=== PATIENT | female | born 1965 | race Caucasian/White ===

== ENCOUNTER → 2024-06-01 | Day surgery (SDC) | payer OTHER ==
[~2024-06-01] MED LIST: ALLEGRA; ASPIRIN81 MG PO; BUPIVACAINE HCL 0.5% 10ML MPF VIAL INJ ONE; CLIMARA1 EAC2 TD; CYCLOBENZAPRINE10 MG PO; ESTRADIOL1 MG PO; HYDROCODON-ACE1 EA12 PO; LOSARTAN-HCTZ1 EAC1; LOSARTAN-HCTZ1 EACH PO; MAGNESIUM SULFATE 2GM/50ML IV ONE; SERTRALINE HCL50 MG PO; TYLENOL EXTRA500 MG; TYLENOL WITH C1 EACH PO; VIT D3 PO; XYZAL2.5 MG/5 M; Z.0.KEFLEX500 MG PO; [UNRECOGNIZED DRUG - OTHER] PO
[2024-06-01] MEDS: LACTATED RINGER'S 1,000 ML ONE (05:57)
[2024-06-01] MEDS: HYDRALAZINE HCL 20 MG/ML VIAL ONE (06:28)
[2024-06-01] MEDS: ACETAMINOPHEN/CODEINE 300MG - 30MG TAB ONE (08:32)
[2024-06-01 08:37] VITALS: BP 171/95; PULSE 58; RESP 18; O2SAT 100
== END | disposition home or self-care (01) ==
LOC: OR 05:24 → MERGE 07:30 → EDSTATUS 07:30
PROVIDERS: ATTEND Specialist
DX: G56.02 Carpal tunnel syndrome, left upper limb (principal); M65.352 Trigger finger, left little finger; I10 Essential (primary) hypertension; M54.2 Cervicalgia; I73.9 Peripheral vascular disease, unspecified; F17.290 Nicotine dependence, other tobacco product, uncomplicated; Z91.048 Other nonmedicinal substance allergy status; Z01.810 Encounter for preprocedural cardiovascular examination; Z79.82 Long term (current) use of aspirin; Z79.899 Other long term (current) drug therapy; Z68.31 Body mass index [BMI] 31.0-31.9, adult; Z95.820 Peripheral vascular angioplasty status with implants and grafts
CPT/HCPCS: 26055; 29848; 93005; J0360; J0690; J3475; J7121

== ENCOUNTER → 2024-11-25 | Outpatient (REF) | payer OTHER ==
[~2024-11-25] MED LIST changes: -BUPIVACAINE HCL 0.5% 10ML MPF VIAL INJ ONE; -MAGNESIUM SULFATE 2GM/50ML IV ONE
== END ==
LOC: MRI 13:07
PROVIDERS: ATTEND Internal Medicine
DX: M54.12 Radiculopathy, cervical region (principal); M54.2 Cervicalgia
CPT/HCPCS: 72141

== ENCOUNTER → 2024-12-07 | Day surgery (SDC) | payer OTHER ==
[~2024-12-07] MED LIST changes: +ACETAMINOPHEN325 M1 PO; +AMINO PO; +DOCUSATE SODIU100 MG PO; +FENTANYL CITRATE/PF 100MCG/2 ML INJ ONE; +GOODY'S EX-STR1 EAC1 PO; +HYOSCYAMINE SULFATE 0.5 MG/ML INJ ONE; +K2 PLUS D3 TAB1 EACH PO; +LEVOCETIRIZINE D5 MG PO; +LIDOCAINE HCL 2% LOCAL INJ 5 ML SDV VIAL INJ ONE; +LOSARTAN-HCTZ1 EAC1 PO; +METHOCARBAMOL750 MG PO; +PANTOPRAZOLE SO40 MG PO; +PROGESTERONE100 MG PO; +PROPOFOL IV EMULSION 10 MG/ML 20 ML VIAL ONE; +PROPOFOL IV EMULSION 50 ML IV ONE; +SEMAGLUTIDE SC; +SIMETHICONE80 MG PO; +TUMERIC PO; +VITAMIN D325 MCG PEG; +[UNRECOGNIZED DRUG - OTHER] SC
[2024-12-07] MEDS: LACTATED RINGER'S 1,000 ML ONE (13:17)
[2024-12-07 14:16] VITALS: TEMP 97.9
[2024-12-07 15:00] VITALS: BP 105/62; PULSE 61; RESP 16; O2SAT 98
== END | disposition home or self-care (01) ==
LOC: OR 12:00
PROVIDERS: ATTEND Internal Medicine Gastroenterology
DX: K59.09 Other constipation (principal); Z86.0100 Personal history of colon polyps, unspecified; K57.30 Diverticulosis of large intestine without perforation or abscess without bleeding; K64.8 Other hemorrhoids; I10 Essential (primary) hypertension; J90 Pleural effusion, not elsewhere classified; F17.290 Nicotine dependence, other tobacco product, uncomplicated; Z91.048 Other nonmedicinal substance allergy status; Z01.810 Encounter for preprocedural cardiovascular examination; Z79.82 Long term (current) use of aspirin; Z79.85 Long-term (current) use of injectable non-insulin antidiabetic drugs; Z79.899 Other long term (current) drug therapy; Z68.32 Body mass index [BMI] 32.0-32.9, adult; Z86.16 Personal history of COVID-19
CPT/HCPCS: 45378; 93005; J1980; J2003; J2704 ×2; J3010; J7121